=== PATIENT | male | born 1990 | race Caucasian/White ===

== ENCOUNTER 2022-05-08 22:04 | Emergency (ER) | payer OTHER ==
[~2022-05-08] VITALS: Ht 177.8 cm; Wt 86.6 kg
[2022-05-09] MEDS ORDERED: DICLOFENAC POTA50 MG PO (00:12)
== END 2022-05-09 01:31 | disposition home or self-care (01) ==
LOC: ER 22:04
DX: S93.05XA Dislocation of left ankle joint, initial encounter (principal); W18.30XA Fall on same level, unspecified, initial encounter; Y93.67 Activity, basketball; Y92.9 Unspecified place or not applicable; Z88.0 Allergy status to penicillin